=== PATIENT | female | born 1990 | race Caucasian/White ===

== ENCOUNTER → 2018-09-03 | Outpatient (CLI) | payer OTHER | END | disposition home or self-care (01) | LOC: SONOGRAMA 07:35 → MAMO-SONO 07:45 | DX: N94.4 Primary dysmenorrhea (principal) ==

== ENCOUNTER 2021-09-14 08:42 | Emergency (ER) | payer OTHER ==
[~2021-09-14] VITALS: Ht 167.6 cm; Wt 63.5 kg
== END 2021-09-14 12:08 | disposition home or self-care (01) ==
LOC: ER 08:42
DX: R20.8 Other disturbances of skin sensation (principal); M25.532 Pain in left wrist

== ENCOUNTER 2023-03-04 09:04 | Outpatient (CLI) | payer OTHER | END 2023-03-04 09:14 | disposition home or self-care (01) | LOC: RX STUDY 09:04 | DX: N97.9 Female infertility, unspecified (principal) ==